=== PATIENT | male | born 1960 | race Caucasian/White ===

== ENCOUNTER 2019-09-27 19:20 | Inpatient (IN) | payer OTHER ==
[~2019-09-27] VITALS: Ht 198.1 cm; Wt 144.0 kg
[2019-09-27] MEDS ORDERED: SODIUM CHLORIDE 0.9% 1,000ML IVBOLUS ONE (20:00)
[2019-09-27] MEDS ORDERED: SODIUM CHLORIDE FLUSH 10ML SYR IVF ONE (20:00)
[2019-09-27] MEDS ORDERED: ONDANSETRON 2MG/ML, 2ML IVPush ONE (20:00)
[2019-09-27] MEDS ORDERED: MORPHINE SULFATE 4 MG/ML, 1ML IVPush PRN (20:00)
[2019-09-27] MEDS ORDERED: LORazepam 2 MG/ML, 1ML ONE ×2 (20:04→22:05)
--- NOTE | 2019-09-27 20:13 | NUR ---
PT MEDICATED FOR ANXIETY BEFORE CT.
--- NOTE | 2019-09-27 20:14 | NUR ---
PT TO CT
[2019-09-27] MEDS ORDERED: MORPHINE SULFATE 4 MG/ML, 1ML ONE (20:30)
[2019-09-27] MEDS ORDERED: LORazepam 2 MG/ML, 1ML IVPush ONE ×2 (20:30→22:00)
[2019-09-27] MEDS ORDERED: ONDANSETRON 2MG/ML, 2ML ONE (20:30)
--- NOTE | 2019-09-27 20:34 | NUR ---
PT AMBULATORY TO RESTROOM TO OBTAIN A URINE SAMPLE
--- NOTE | 2019-09-27 20:45 | NUR ---
PT MEDICATED PER EMAR FOR PAIN. 5 RIGHTS ADDRESSED. ALL VITALS STABLE. SINUS TACH ON THE MONITOR WITH NO ECTOPY NOTED, NO ST CHANGES PRESENT
[2019-09-27 20:59] LABS: MICROSCOPIC NOT IND
[2019-09-27 21:03] LABS: CULTURE INDICATED? NO
[2019-09-27 21:15] LABS: BASOPHILS # (AUTO) 0.05 x10^3/uL (0-0.1); BASOPHILS % (AUTO) 0 % (0-1); EOSINOPHILS # (AUTO) 0.14 x10^3/uL (0-0.4); EOSINOPHILS % (AUTO) 1 % (1-7); LYMPHOCYTES # (AUTO) 2.14 x10^3/uL (1-3.4); LYMPHOCYTES % (AUTO) 17 % (22-44); MD NO; MEAN CORPUSCULAR HEMOGLOBIN 29.4 pg (27.5-34.5); MEAN CORPUSCULAR HGB CONC 32.8 g/dL (33.2-36.2); MEAN CORPUSCULAR VOLUME 89.6 fL (81-97); MEAN PLATELET VOLUME 7.7 fL (7.4-10.4); MONOCYTES # (AUTO) 0.98 x10^3/uL (0.2-0.8); MONOCYTES % (AUTO) 8 % (2-9); NEUTROPHILS # (AUTO) 9.61 x10^3/uL (1.8-6.8); NEUTROPHILS % (AUTO) 74 % (42-75); PLATELET COUNT 218 x10^3/uL (130-400); RED BLOOD COUNT 5.85 x10^6/uL (4.38-5.82); RED CELL DISTRIBUTION WIDTH 14.4 % (9.4-14.8)
[2019-09-27 21:25] LABS: ALANINE AMINOTRANSFERASE 29 U/L (12-78); ALBUMIN 3.1 g/dL (3.4-5.0); ANION GAP 7 mmol/L (5-15); CALCIUM 8.3 mg/dL (8.5-10.1); CHLORIDE 105 mmol/L (98-107); CREATININE 0.95 mg/dL (0.7-1.3)
[2019-09-27 21:29] LABS: ALKALINE PHOSPHATASE 95 U/L (45-117); BILIRUBIN,TOTAL 0.6 mg/dL (0.2-1.0); TOTAL PROTEIN 6.9 g/dL (6.4-8.2); TROPONIN I 0.059 ng/mL (0.000-0.045)
[2019-09-27 21:36] LABS: RAPID INFLUENZA A Negative (Negative); RAPID INFLUENZA B Negative (Negative)
--- NOTE | 2019-09-27 21:37 | NUR ---
PT TO CT FOR CTA
--- NOTE | 2019-09-27 21:50 | NUR ---
PER DR. DUONG, HOLD ASA UNTIL AFTER LP
[2019-09-27] MEDS ORDERED: OMNIPAQUE 350 MG/ML, 100ML BOTTLE ONE (21:59)
[2019-09-27] MEDS ORDERED: ASPIRIN 325 MG TABLET PO ONE (22:00)
[2019-09-27] MEDS ORDERED: LIDOCAINE-MPF 1%, 5ML ONE (22:01)
--- NOTE | 2019-09-27 22:09 | NUR ---
PT MEDICATED WITH ATIVAN FOR LP. DR. DUONG AT BEDSIDE PERFORMING LP
--- NOTE | 2019-09-27 22:31 | NUR ---
LP COMPLETE. PT TO BE ADMITTED. AWAITING BED FOR PT AT THIS TIME.
[2019-09-27 22:33] LABS: GLUCOSE, CSF 145 mg/dL (40-80); TOTAL PROTEIN,CSF 34 mg/dL (15-45)
--- NOTE | 2019-09-27 22:49 | NUR ---
REPORT TO KINSEY SOTELO
[2019-09-27] MEDS ORDERED: ASPIRIN 325 MG TABLET ONE (22:51)
[2019-09-27 23:23] VITALS: BP 123/68
[2019-09-27] MEDS ORDERED: NITROGLYCERIN 0.4 MG BOTTLE (25 TABS) SL PRN (23:30)
[2019-09-27] MEDS ORDERED: ACETAMINOPHEN 325 MG TABLET PO PRN (23:30)
[2019-09-27] MEDS ORDERED: ONDANSETRON ODT 4 MG PO PRN (23:30)
[2019-09-27] MEDS ORDERED: BISACODYL 10 MG SUPP PR PRN (23:30)
[2019-09-27] MEDS ORDERED: POLYETHYLENE GLYCOL 17 GM PACKET PO PRN (23:30)
[2019-09-27] MEDS ORDERED: GLIP10TA13 PO (23:46)
[2019-09-27] MEDS ORDERED: DULA1.5P SC (23:46)
[2019-09-27] MEDS ORDERED: TEST200V3 IM (23:46)
[2019-09-27] MEDS ORDERED: GABA300C10 PO (23:46)
[2019-09-27] MEDS ORDERED: HYDR12.517 PO (23:46)
[2019-09-27] MEDS ORDERED: METF500T17 PO (23:46)
[2019-09-27] MEDS ORDERED: ASCO-96 PO (23:48)
[2019-09-27] MEDS ORDERED: ASPI81TA45 PO (23:48)
[2019-09-27] MEDS ORDERED: OMEG1CAP23 PO (23:48)
[2019-09-28] MEDS: morphine SULFATE 10 MG/ML, 1ML IVPush PRN ×4 (00:14→21:08)
[2019-09-28] MEDS: HEPARIN 5,000 UNITS/ML, 1ML SQ SCH ×3 (00:16→16:08)
[2019-09-28] MEDS: INSULIN LISPRO 100 UNITS/ML, PEN SQ-INSULIN SCH ×5 (00:57→21:07)
[2019-09-28 02:29] LABS: BASOPHILS # (AUTO) 0.06 x10^3/uL (0-0.1); BASOPHILS % (AUTO) 1 % (0-1); EOSINOPHILS # (AUTO) 0.14 x10^3/uL (0-0.4); EOSINOPHILS % (AUTO) 1 % (1-7); LYMPHOCYTES # (AUTO) 2.61 x10^3/uL (1-3.4); LYMPHOCYTES % (AUTO) 23 % (22-44); MD NO; MEAN CORPUSCULAR HEMOGLOBIN 29.8 pg (27.5-34.5); MEAN CORPUSCULAR HGB CONC 33.4 g/dL (33.2-36.2); MEAN CORPUSCULAR VOLUME 89.2 fL (81-97); MEAN PLATELET VOLUME 7.8 fL (7.4-10.4); MONOCYTES # (AUTO) 0.91 x10^3/uL (0.2-0.8); MONOCYTES % (AUTO) 8 % (2-9); NEUTROPHILS # (AUTO) 7.62 x10^3/uL (1.8-6.8); NEUTROPHILS % (AUTO) 67 % (42-75); PLATELET COUNT 209 x10^3/uL (130-400); RED BLOOD COUNT 5.68 x10^6/uL (4.38-5.82); RED CELL DISTRIBUTION WIDTH 14.3 % (9.4-14.8)
[2019-09-28 02:40] LABS: ANION GAP 8 mmol/L (5-15); CALCIUM 8.6 mg/dL (8.5-10.1); CHLORIDE 104 mmol/L (98-107); CREATININE 0.93 mg/dL (0.7-1.3)
[2019-09-28 02:42] LABS: CHOL/HDL RATIO 3.2; CHOLESTEROL, TOTAL 114 mg/dL (140-239); HDL CHOL % 32 % (26-37); HDL CHOLESTEROL (DIRECT) 36 mg/dL (40-60); LDL CHOLESTEROL,CALCULATED 49 mg/dL (54-169); LDL/HDL RATIO 1.4 (0.5-3.0); TRIGLYCERIDES 145 mg/dL (50-200); VLDL CHOLESTEROL 29 mg/dL (0-25)
[2019-09-28 02:49] LABS: TROPONIN I 0.047 ng/mL (0.000-0.045)
[2019-09-28] MEDS: ASPIRIN 81 MG TABLET EC PO SCH (05:43)
[2019-09-28 07:46] VITALS: BP 140/81
[2019-09-28] MEDS ORDERED: MULT-658 PO (07:46)
[2019-09-28] MEDS ORDERED: SIMV20TA19 PO (07:46)
[2019-09-28] MEDS ORDERED: OMEP-110 PO (07:46)
[2019-09-28] MEDS ORDERED: IBUP-1623 PO (07:46)
[2019-09-28] MEDS ORDERED: IRBE300T8 PO (07:46)
[2019-09-28] MEDS: SODIUM CHLORIDE FLUSH 10ML SYR IVF SCH ×2 (07:58→21:07)
[2019-09-28] MEDS: SENNA/DOCUSATE TABLET PO SCH ×2 (07:58→08:08)
[2019-09-28] MEDS ORDERED: REGADENOSON 0.4 MG/5 ML SYRINGE ONE (08:23)
[2019-09-28 08:44] LABS: TROPONIN I < 0.015 ng/mL (0.000-0.045)
[2019-09-28] MEDS ORDERED: FENTANYL PF 100 MCG/2ML ONE (11:41)
[2019-09-28] MEDS ORDERED: MIDAZOLAM 1 MG/ML, 5ML ONE ×2 (11:41)
[2019-09-28] MEDS ORDERED: GADOTERATE 10 MMOL/20 ML VIAL ONE (13:02)
[2019-09-28 14:00] VITALS: BP 134/83
[2019-09-28 20:20] VITALS: BP 166/99
[2019-09-29] MEDS: HEPARIN 5,000 UNITS/ML, 1ML SQ SCH ×2 (00:25→08:17)
[2019-09-29] MEDS: morphine SULFATE 10 MG/ML, 1ML IVPush PRN (00:26)
[2019-09-29 02:41] VITALS: BP 135/83
[2019-09-29 05:31] LABS: BASOPHILS # (AUTO) 0.03 x10^3/uL (0-0.1); BASOPHILS % (AUTO) 0 % (0-1); EOSINOPHILS # (AUTO) 0.11 x10^3/uL (0-0.4); EOSINOPHILS % (AUTO) 1 % (1-7); LYMPHOCYTES # (AUTO) 2.24 x10^3/uL (1-3.4); LYMPHOCYTES % (AUTO) 22 % (22-44); MD NO; MEAN CORPUSCULAR HEMOGLOBIN 29.7 pg (27.5-34.5); MEAN CORPUSCULAR HGB CONC 33.3 g/dL (33.2-36.2); MEAN CORPUSCULAR VOLUME 89.1 fL (81-97); MEAN PLATELET VOLUME 7.9 fL (7.4-10.4); MONOCYTES # (AUTO) 0.74 x10^3/uL (0.2-0.8); MONOCYTES % (AUTO) 7 % (2-9); NEUTROPHILS # (AUTO) 6.98 x10^3/uL (1.8-6.8); NEUTROPHILS % (AUTO) 69 % (42-75); PLATELET COUNT 193 x10^3/uL (130-400); RED BLOOD COUNT 5.54 x10^6/uL (4.38-5.82); RED CELL DISTRIBUTION WIDTH 14.2 % (9.4-14.8)
[2019-09-29] MEDS: ASPIRIN 81 MG TABLET EC PO SCH (05:42)
[2019-09-29] MEDS: INSULIN LISPRO 100 UNITS/ML, PEN SQ-INSULIN SCH ×2 (07:00→11:00)
[2019-09-29 07:36] VITALS: BP 143/82
[2019-09-29] MEDS: SENNA/DOCUSATE TABLET PO SCH (08:18)
[2019-09-29] MEDS: SODIUM CHLORIDE FLUSH 10ML SYR IVF SCH (08:19)
[2019-09-29] MEDS ORDERED: PRED20TA PO (10:41)
== END 2019-09-29 11:54 | disposition home or self-care (01) | DRG 103 ==
LOC: ED 22:53 → 5SO 23:18 → DCLOUNGE 09-29 11:48
PROVIDERS: ADMIT Hospitalist; ATTEND Hospitalist
PROC: 009U3ZX Drainage of Spinal Canal, Percutaneous Approach, Diagnostic (ICD-10-PCS; principal; 2019-09-27)
DX: G43.C0 Periodic headache syndromes in child or adult, not intractable (principal); D72.829 Elevated white blood cell count, unspecified; E11.9 Type 2 diabetes mellitus without complications; E78.5 Hyperlipidemia, unspecified; I10 Essential (primary) hypertension; Z82.49 Family history of ischemic heart disease and other diseases of the circulatory system; Z83.3 Family history of diabetes mellitus; Z86.718 Personal history of other venous thrombosis and embolism; Z96.653 Presence of artificial knee joint, bilateral; R07.89 Other chest pain; Z79.82 Long term (current) use of aspirin; E23.6 Other disorders of pituitary gland
CPT/HCPCS: 36415; 70450; 70553; 71045; 71275; 78452; 80048; 80053; 80061; 81003; 82533; 82945; 82962; 83036; 83605; 84145; 84157; 84443; 84484; 85025; 87070; 87205; 87252; 87400; 89051; 93005; 93017; 96361; 96374; 96375; 99156; 99157; 99285; G0378; J1644; J2250; J2405; J2785; J3010; Q9967; A9502; A9575; J1815; J2060; J2270; J7030; J7512